=== PATIENT | female | born 1930 | race African-American/Black ===

== ENCOUNTER 2018-12-23 03:36 | Emergency (ER) | payer MEDICARE, MEDICAID ==
[~2018-12-23] VITALS: Ht 177.8 cm; Wt 102.0 kg
[2018-12-23] MEDS ORDERED: ACETAMINOPHEN 325MG TABLET PO ONE (06:30)
[2018-12-23 06:41] LABS: HEMATOCRIT. 37.4 % (36.0-48.0); HEMOGLOBIN. 12.4 g/dL (12.0-16.0); MEAN CORPUSCULAR VOLUME 93.7 fL (81.0-99.0); MEAN PLATELET VOLUME 6.9 fl (7.4-10.4); PLATELET 196 x1000/uL (130-400); RED BLOOD CELL COUNT 3.99 mill/uL (4.2-5.4); RED CELL DISTRIBUTION WIDTH 14.1 % (11.6-14.6)
[2018-12-23 06:47] LABS: CHLORIDE 104 mEq/L (98-107)
[2018-12-23 07:14] LABS: ATYPICAL LYMPHOCYTES 1
[2018-12-23 07:15] LABS: PLATELET ESTIMATE NORMAL
[2018-12-23 14:09] VITALS: BP 128/84
== END 2018-12-23 14:12 | disposition home or self-care (01) ==
LOC: ER 03:36
DX: M25.512 Pain in left shoulder (principal); M25.511 Pain in right shoulder; M25.562 Pain in left knee; R51 Headache; E11.9 Type 2 diabetes mellitus without complications; I10 Essential (primary) hypertension; Z86.73 Personal history of transient ischemic attack (TIA), and cerebral infarction without residual deficits; Z88.7 Allergy status to serum and vaccine; W01.0XXA Fall on same level from slipping, tripping and stumbling without subsequent striking against object, initial encounter; Y93.89 Activity, other specified; Y92.018 Other place in single-family (private) house as the place of occurrence of the external cause
CPT/HCPCS: 36415; 71045; 73030; 73521; 73560; 73600; 84484; 93005; 99284